=== PATIENT | female | born 1990 | race Two or more races ===

== ENCOUNTER 2017-12-13 16:49 | Emergency (ER) | payer SELFPAY ==
--- NOTE | 2017-12-13 17:11 | EDPHY ---
H & P Stated Complaint: L hip pain s/p fall Time Seen by Provider: 12/13/17 17:07 HPI/ROS: HPI: This is a 27-year-old female who presents with Chief Complaint: Left hip pain status post fall Location: Left hip Quality: Pain and injury Duration: At 8:00 a.m. This morning, approximately 9 hr prior to arrival Signs and Symptoms: No bleeding, no radiation, no numbness, no weakness, no tingling, no incontinence, + decreased range of motion, no swelling, + pain, no fever Timing: Acute, constant Severity: 10 out 10 Context: Patient presents accompanied by her mother and 2 children with complaints of slipping in the shower this morning around 8:00 a.m. She reports that she started to fall backwards and then twisted landing on her left hip hitting the side of the bathtub. She reports that she felt immediate, constant , severe, nonradiating pain. She laid on the ground for a few minutes and then was able to push herself up and bear weight. She reports that she took ibuprofen 400 mg with no relief. The pain has continued throughout the day and she is currently crying excessively in the ER stretcher. Denies LOC/head injury /neck pain/dizziness/nausea/vomiting/amnesia. Patient is unable to bear weight on left extremity secondary to pain. Modifying Factors: ibuprofen Comment: ROS: A comprehensive 10 system review of systems is otherwise negative aside from elements mentioned in the history of present illness. MEDICAL/SURGICAL/SOCIAL HISTORY: Medical history: Generally healthy. Does not take any regular medications. LMP 2-3 weeks ago. Surgical history: Denies Social history: Nonsmoker CONSTITUTIONAL: Hysterically crying young adult female, awake and alert, no obvious distress HEENT: Atraumatic and normocephalic. NECK: supple, no midline tenderness, flexion 45 degrees, extension 45 degrees, right and left lateral flexion 45 degrees. No meningismus. Cardiovascular: Normal S1/S2, regular rate, regular rhythm, without murmur rub or gallop. PULMONARY/CHEST: Symmetrical and nontender. no crepitus. Clear to auscultation bilaterally. Good air movement. No accessory muscle usage. ABDOMEN: Soft, nondistended, nontender, no ecchymosis. PELVIC: no pain with rocking; bilateral hips flexion 125 degrees, extension 30 degrees, with no pain internal rotation and no pain external rotation. BACK: No midline tenderness, no paraspinous spasm, deep tendon reflexes 2/2, no pain with straight leg raise, No foot drop. Achilles reflexes are equal bilaterally. Able to walk on heels and toes without difficulty. EXTREMITIES: 2/2 pulses, strength 5/5, left HIP: Decreased flexion, extension , hyper extension, abduction secondary to pain. Moderate Pain with internal rotation and external rotation. Moderate tenderness over greater trochanter. good light touch sensation. no deformities, no clubbing, no cyanosis or edema. NEUROLOGICAL: no focal neuro deficits. GCS 15. Light touch sensation intact. SKIN: Warm and dry, no erythema. no rash. Good capillary refill. Source: Patient Exam Limitations: No limitations - Personal History LMP (Females 10-55): 15-21 Days Ago Current Tetanus/Diphtheria Vaccine: Unsure Current Tetanus Diphtheria and Acellular Pertussis (TDAP): Unsure - Medical/Surgical History Hx Asthma: No Hx Chronic Respiratory Disease: No Hx Diabetes: No Hx Cardiac Disease: No Hx Renal Disease: No Hx Cirrhosis: No Hx Alcoholism: No Hx HIV/AIDS: No Hx Splenectomy or Spleen Trauma: No Other PMH: denies - Social History Smoking Status: Never smoked Constitutional: Initial Vital Signs Temperature (C) 37 C 12/13/17 16:54 Heart Rate 120 H 12/13/17 16:54 Respiratory Rate 18 12/13/17 16:54 Blood Pressure 119/78 12/13/17 16:54 O2 Sat (%) 100 12/13/17 16:54 O2 Delivery Mode Room Air Allergies/Adverse Reactions: No Known Allergies Allergy (Unverified 12/13/17 16:53) Home Medications: Medication Instructions Recorded Cyclobenzaprine [Flexeril 10 MG 10 mg PO TID PRN #15 tab 12/13/17 (*)] Ibuprofen 800 mg PO Q8 PRN #12 tablet 12/13/17 oxyCODONE/APAP 5/325 [Percocet 1 - 2 tab PO Q4H PRN #10 tab 12/13/17 5/325 (*)] Medical Decision Making - Diagnostics Imaging Results: Imaging Impressions Hip X-Ray 12/13/17 17:12 Impression: Negative. Extremity CT 12/13/17 19:46 Impression: 1. Negative for acute fracture. 2. Bilateral sacroiliitis. Findings and recommendations discussed with Veronica Smith at 2024 hour, 2017. ED Course/Re-evaluation: Vital signs reviewed and show tachycardia likely due to pain. P.o. Percocet and Flexeril ordered. Left hip x-ray ordered as well. 1749: Hip x-ray my read via PAC shows no fracture. 1754: Called by nursing staff that patient crying and yelling and demanding pain medication. At bedside with patient to reassess. Advised that x-ray shows no fracture and that she has a contusion. IM Toradol 60 mg ordered. 1819: Reassessed patient who reports only mild relief of pain. IM morphine 2 mg given. 1919: Passed road test without any difficulty. Given a prescription for Percocet, ibuprofen 800 mg, Flexeril. 1937: Informed by nursing that patient is refusing to leave the facility. CT hip ordered 2024: Called by radiologist, Dr. Sagastume, who advised that CT hips shows no acute fracture, dislocation. Mild sacroiliitis noted. Reassessed patient. Crutches provided. Discharged to the care of her family. Patient is high risk for bounce-back. No signs of neurovascular compromise/tenting of skin/compartment syndrome/ extremities and joints examined above and below area of concern and are neurovascularly intact. This patient was seen under the supervision of my secondary supervising physician. I evaluated care for this patient independently. Discussed this patient with Dr. Aquino. Differential Diagnosis: Differential diagnosis includes but is not limited to sprain, contusion, fracture. - Data Points Medications Given: Discontinued Medications Cyclobenzaprine HCl (Flexeril) 10 mg PO EDNOW ONE Stop: 12/13/17 17:13 Last Admin: 12/13/17 17:18 Dose: 10 mg Ketorolac Tromethamine (Toradol) 60 mg IM EDNOW ONE Stop: 12/13/17 17:53 Last Admin: 12/13/17 17:56 Dose: 60 mg Morphine Sulfate (Morphine) 2 mg IM EDNOW ONE Stop: 12/13/17 18:21 Last Admin: 12/13/17 18:28 Dose: 2 mg Oxycodone/Acetaminophen (Percocet 5/325) 1 tab PO EDNOW ONE Stop: 12/13/17 17:13 Last Admin: 12/13/17 17:18 Dose: 1 tab Departure - Departure Disposition: Home, Routine, Self-Care Clinical Impression: Contusion of left hip, initial encounter, Pain of left sacroiliac joint Condition: Good Instructions: Contusion in Adults (ED) Additional Instructions: Take Tylenol 650 mg every 4 hours and/or Ibuprofen 800 mg every 8 hours with food as needed for pain. Use Flexeril every 8 hours as needed for muscle spasm. Take Percocet 1 tab every 4-6 hours needed for severe, breakthrough pain. Apply ice for 30 minutes at a time; 2-3 times per day for the next 1-2 days. Follow up with PCP in 5-7 days to re-evaluate The x-rays obtained in the emergency department today demonstrate no evidence of an obvious fracture. Sometimes fractures are not obvious on the initial set of x-rays performed in the ED. For this reason, you should have repeat x-rays performed in 7-10 days if you are having any pain exclude the possibility of an occult fracture. Referrals: [facility],. [Clinic] - As per Instructions Prescriptions: Cyclobenzaprine [Flexeril 10 MG (*)] 10 mg PO TID PRN #15 tab PRN Reason: Spasms Ibuprofen 800 mg PO Q8 PRN #12 tablet PRN Reason: Pain, Moderate oxyCODONE/APAP 5/325 [Percocet 5/325 (*)] 1 - 2 tab PO Q4H PRN #10 tab PRN Reason: Pain, Severe
[2017-12-13] MEDS ORDERED: OXYCODONE/APAP 5/325 TAB PO ONE (17:12)
[2017-12-13] MEDS ORDERED: CYCLOBENZAPRINE 10 MG TAB PO ONE (17:12)
[2017-12-13] MEDS ORDERED: KETOROLAC 30 MG/1 ML SDV IM ONE (17:52)
[2017-12-13 20:43] VITALS: BP 125/65
== END 2017-12-13 20:47 | disposition home or self-care (01) ==
DX: S70.02XA Contusion of left hip, initial encounter (principal); M46.1 Sacroiliitis, not elsewhere classified; W18.2XXA Fall in (into) shower or empty bathtub, initial encounter; Y92.002 Bathroom of unspecified non-institutional (private) residence as the place of occurrence of the external cause; Y93.E1 Activity, personal bathing and showering
CPT/HCPCS: J1885; J2270